=== PATIENT | female | born 1965 | race Caucasian/White ===

== ENCOUNTER 2022-05-19 01:33 | Emergency (ER) | payer OTHER ==
[2022-05-19] MEDS ORDERED: AMOX TR/POT CLAV 500MG/125MG TABLETS (FP) PO ONE (01:37)
[2022-05-19] MEDS ORDERED: AMOX TR/POT CLAV 500MG/125MG TABLETS (FP) ONE (01:41)
[2022-05-19 01:42] VITALS: BP 124/85; PULSE 79; RESP 17; TEMP 98.8; BMI 18.3
== END 2022-05-19 01:46 | disposition home or self-care (01) ==
LOC: FER 01:33
DX: S00.211A Abrasion of right eyelid and periocular area, initial encounter (principal); W55.03XA Scratched by cat, initial encounter
CPT/HCPCS: 99283-25